=== PATIENT | male | born 1990 | race Caucasian/White ===

== ENCOUNTER 2019-01-05 02:26 | Emergency (ER) | payer OTHER, SELFPAY ==
[2019-01-05 02:27] VITALS: BP 115/67; PULSE 79; RESP 16; TEMP 36.7; O2SAT 99; BMI 25.7
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
--- NOTE | 2019-01-05 02:45 | CT_ITS ---
STUDY: CTA OF THE BRAIN REASON FOR EXAM: Male, 28 years old. Blurred vision, headache RADIATION DOSAGE (If Supplied By Facility): CTDIvol = ( 25.98 ) mGy, DLP = ( 1607.06 ) mGycm TECHNIQUE: CT angiography was performed with a multi-detector CT scanner. Data acquisition was obtained from the skull base through the vertex following intravenous administration of Isovue 370 100ML IV. MIP images were reconstructed from the axial data set. Post-processing of the angiographic images was performed, with multiplanar reformation and 3D reconstruction. Individualized dose optimization techniques were used for this CT. COMPARISON: None. FINDINGS: Normal bilateral pet[place] carotid arteries. Normal right cavernous carotid artery with a normal supraclinoid bifurcation. Normal left cavernous carotid artery with a normal supraclinoid bifurcation. Normal right A1 segments of the anterior cerebral artery. Normal left A1 segments of the anterior cerebral artery. Normal intact anterior communicating artery (ACOM). Normal bilateral A2 segments of the anterior cerebral arteries. Normal right M1 and M2 segments of the middle cerebral arteries, with a normal M1 bifurcation. Normal left M1 and M2 segments of the middle cerebral arteries, with a normal M1 bifurcation. Normal right posterior communicating artery (PCOM). Normal left posterior communicating artery (PCOM). Normal bilateral vertebral arteries. Normal basilar artery with a normal basilar bifurcation. The visualized bilateral superior cerebellar (SCA) arteries are normal. Normal bilateral P1, P2 and visualized P3 segments of the posterior cerebral arteries. There is no demonstrated aneurysm of the [place]. There is no demonstrated abnormality of the visualized brain. Paranasal sinus disease. Multiple periapical lucencies are seen may represent dental abscess. There is no evidence for soft tissue extension. Recommend follow-up with patient's dentist. Evaluation is limited of the mouth due to streak artifact from patient's dental hardware. CT/CTA Head W/WO Contrast IMPRESSION: Normal [place] without a demonstrated aneurysm or hemodynamically significant stenosis. Other findings as discussed above. Electronically Signed: Dominic Cleaning, at 4:33 EST Tel , Service support ,
--- NOTE | 2019-01-05 02:52 | ED.VIS.GEN ---
History of Present Illness Chief Complaint: Eye Problem Detail of Chief Complaint: headache Informant: Patient Onset: Weeks - 1 Context: Sudden Onset - felt a pop behind left eye in head when bent over forwards Timing: Waxes and wanes Quality: like needles Location: behind left eye Current Severity: Moderate Maximum Severity: Moderate Worsened by: bending over forwards Relieved by: nothing in particular Associated Symptoms: blurry vision in left eye off and on. upper neck pain. no trauma. Narrative: Patient states symptoms were worse tonight at work so he came in for evaluation. It is almost 3 AM. Symptoms have been ongoing for about a week. This is the first time he has been seen for this. History of seizures in the past, does not have them very often and his last one was about 6 months ago. He takes no medications. He uses marijuana but no other drugs. He states he has been having some tingling in his left arm off and on in the past week as well but no weakness. No problems walking. Also some dizziness/vertigo off and on, no changes in hearing, tinnitus, or earache. No recent illnesses. He has had no episodes of loss of consciousness. - Past Medical History (1) Seizures Status: Chronic Past Medical History - Allergies and Home Meds Allergies/Adverse Reactions: Allergies No Known Allergies Allergy (Verified 01/05/19 02:27) Primary Care Physician: Care Physician,No Primary [Primary Care Provider] - Smoking Status: Current every day smoker Drugs: Marijuana - no other illicit drugs Review of Systems General: Denies: Chills, Fever, Sweats Eyes: Reports: Blurred vision - left, - - no eye pain. Denies: Diplopia ENT: Reports: Rhinorrhea - clear, when he becomes upright often after bending over forwards. Denies: Bilateral ear pain, Sore throat Cardiovascular: Denies: Chest pain, Palpitations Respiratory: Denies: Dyspnea, Cough, Dyspnea on exertion Gastrointestinal: Denies: Abdominal pain, Nausea, Vomiting, Diarrhea, Melena, Hematochezia Genitourinary: Denies: Dysuria, Hematuria, Frequency Musculoskeletal: Reports: Neck pain. Denies: Back pain, Extremity Pain Skin: Denies: Rash, Wounds Neurological: Reports: Headache, Parasthesia. Denies: Weakness Physical Exam Vital Signs/Narrative: Vital Signs Temp Pulse Resp BP Pulse Ox 01/05/19 02:27 98.1 F 79 16 115/67 99 Inital Vital Signs reviewed: Yes General: Well nourished, Well developed, No Acute Distress - well-appearing Head: Normocephalic, Atraumatic Eyes: Perrl, EOMI - w/o pain ENT: Moist mucous membranes, No rhinorrhea, TM's clear. Negative for: Nasal congestion, Sinus tenderness Neck: Supple, Nontender, No lymphadenopathy, No JVD, - - no carotid bruits bilaterally Cardiovascular: Regular rate, Regular rhythm, No murmurs, Normal S1, Normal S2 Respiratory: No distress, CTA bilaterally, Chest nontender Back: Nontender, Normal Inspection Extremities: Nontender, No edema Skin: Normal color, No rash, No Trauma Neurological: Alert, Oriented x3, Cranial nerves II-XII grossly intact, Normal Strength, Normal Sensation, Normal DTR, Normal Gait Psychological: Normal affect, Normal Mood Diagnostic/Tx/Re-eval Impressions Head CTA 01/05/19 02:45 IMPRESSION: Normal [place] without a demonstrated aneurysm or hemodynamically significant stenosis. Other findings as discussed above. Electronically Signed: Dominic Cleaning, at 4:33 EST Tel , Service support , Neck CTA 01/05/19 02:45 IMPRESSION: Normal bilateral cervical carotid and vertebral arteries. Other findings as above. Electronically Signed: Dominic Cleaning, at 4:30 EST Tel , Service support , 01/05/19 02:45 CTA Head W/WO Contrast [CT] Stat CTA Neck W/WO Contrast [CT] Stat Laboratory Results 01/05/19 03:05 Sodium 144 Potassium 3.8 Chloride 106 Carbon Dioxide 31.0 Anion Gap 7 BUN 11 Creatinine 0.99 Estim Creat Clear Calc 118.32 Est GFR (MDRD) Af Amer 116 Est GFR (MDRD) Non-Af 96 BUN/Creatinine Ratio 11.2 Glucose 90 Calcium 8.5 - Medical Decision Making Normal chemistries were returned prior to obtaining CT with contrast. CT of the head plane is unremarkable, we followed this with CT angiography of the head and neck, which showed no evidence of a cervical artery dissection or other arterial abnormality. After Toradol, he does feel little better. He denies having any nausea or vomiting or photophobia with these headaches, but does note the vertiginous symptoms. Will prescribe him meclizine, advised that he take ibuprofen as needed, and will give him a doctor to follow-up with, since he does not have a PCP. He is comfortable with this plan. Of note, the CT showed incidentally that he has multiple periapical lucencies, that may represent dental abscesses according to the radiologist. When evaluating the patient, he states he is having no dental pain, and the majority of his teeth are implants, which may explain the lucencies. I advised him to follow-up with the dentist if he has any issues. ED Disposition - Plan for ED Patient: Disposition: Home or Assisted Living Diagnosis: Cephalgia, Vertigo Instructions: ED Cephalgia Unspecified, ED Vertigo Unspecified Prescriptions: Meclizine HCl 25 mg PO Q8H PRN #16 tab PRN Reason: Vertigo Referrals: Nilsa Daniel MD [STAFF PHYSICIAN] - 1 Week if not improving
--- NOTE | 2019-01-05 02:56 | ED.DCSUM_ITS ---
History of Present Illness Chief Complaint: Eye Problem Detail of Chief Complaint: headache Informant: Patient Onset: Weeks - 1 Context: Sudden Onset - felt a pop behind left eye in head when bent over forwards Timing: Waxes and wanes Quality: like needles Location: behind left eye Current Severity: Moderate Maximum Severity: Moderate Worsened by: bending over forwards Relieved by: nothing in particular Associated Symptoms: blurry vision in left eye off and on. upper neck pain. no trauma. Narrative: Patient states symptoms were worse tonight at work so he came in for evaluation. It is almost 3 AM. Symptoms have been ongoing for about a week. This is the first time he has been seen for this. History of seizures in the past, does not have them very often and his last one was about 6 months ago. He takes no medications. He uses marijuana but no other drugs. He states he has been having some tingling in his left arm off and on in the past week as well but no weakness. No problems walking. Also some dizziness/vertigo off and on, no changes in hearing, tinnitus, or earache. No recent illnesses. He has had no episodes of loss of consciousness. - Past Medical History (1) Seizures Status: Chronic Past Medical History - Allergies and Home Meds Allergies/Adverse Reactions: Allergies No Known Allergies Allergy (Verified 01/05/19 02:27) Primary Care Physician: Care Physician,No Primary [Primary Care Provider] - Smoking Status: Current every day smoker Drugs: Marijuana - no other illicit drugs Review of Systems General: Denies: Chills, Fever, Sweats Eyes: Reports: Blurred vision - left, - - no eye pain. Denies: Diplopia ENT: Reports: Rhinorrhea - clear, when he becomes upright often after bending over forwards. Denies: Bilateral ear pain, Sore throat Cardiovascular: Denies: Chest pain, Palpitations Respiratory: Denies: Dyspnea, Cough, Dyspnea on exertion Gastrointestinal: Denies: Abdominal pain, Nausea, Vomiting, Diarrhea, Melena, Hematochezia Genitourinary: Denies: Dysuria, Hematuria, Frequency Musculoskeletal: Reports: Neck pain. Denies: Back pain, Extremity Pain Skin: Denies: Rash, Wounds Neurological: Reports: Headache, Parasthesia. Denies: Weakness Physical Exam Vital Signs/Narrative: Vital Signs Temp Pulse Resp BP Pulse Ox 01/05/19 02:27 98.1 F 79 16 115/67 99 Inital Vital Signs reviewed: Yes General: Well nourished, Well developed, No Acute Distress - well-appearing Head: Normocephalic, Atraumatic Eyes: Perrl, EOMI - w/o pain ENT: Moist mucous membranes, No rhinorrhea, TM's clear. Negative for: Nasal congestion, Sinus tenderness Neck: Supple, Nontender, No lymphadenopathy, No JVD, - - no carotid bruits bilaterally Cardiovascular: Regular rate, Regular rhythm, No murmurs, Normal S1, Normal S2 Respiratory: No distress, CTA bilaterally, Chest nontender Back: Nontender, Normal Inspection Extremities: Nontender, No edema Skin: Normal color, No rash, No Trauma Neurological: Alert, Oriented x3, Cranial nerves II-XII grossly intact, Normal Strength, Normal Sensation, Normal DTR, Normal Gait Psychological: Normal affect, Normal Mood Diagnostic/Tx/Re-eval Impressions Head CTA 01/05/19 02:45 IMPRESSION: Normal [place] without a demonstrated aneurysm or hemodynamically significant stenosis. Other findings as discussed above. Electronically Signed: Dominic Cleaning, at 4:33 EST Tel , Service support , Neck CTA 01/05/19 02:45 IMPRESSION: Normal bilateral cervical carotid and vertebral arteries. Other findings as above. Electronically Signed: Dominic Cleaning, at 4:30 EST Tel , Service support , 01/05/19 02:45 CTA Head W/WO Contrast [CT] Stat CTA Neck W/WO Contrast [CT] Stat Laboratory Results 01/05/19 03:05 Sodium 144 Potassium 3.8 Chloride 106 Carbon Dioxide 31.0 Anion Gap 7 BUN 11 Creatinine 0.99 Estim Creat Clear Calc 118.32 Est GFR (MDRD) Af Amer 116 Est GFR (MDRD) Non-Af 96 BUN/Creatinine Ratio 11.2 Glucose 90 Calcium 8.5 - Medical Decision Making Normal chemistries were returned prior to obtaining CT with contrast. CT of the head plane is unremarkable, we followed this with CT angiography of the head and neck, which showed no evidence of a cervical artery dissection or other arterial abnormality. After Toradol, he does feel little better. He denies having any nausea or vomiting or photophobia with these headaches, but does note the vertiginous symptoms. Will prescribe him meclizine, advised that he take ibuprofen as needed, and will give him a doctor to follow-up with, since he does not have a PCP. He is comfortable with this plan. Of note, the CT showed incidentally that he has multiple periapical lucencies, that may represent dental abscesses according to the radiologist. When evaluating the patient, he states he is having no dental pain, and the majority of his teeth are implants, which may explain the lucencies. I advised him to follow-up with the dentist if he has any issues. ED Disposition - Plan for ED Patient: Disposition: Home or Assisted Living Diagnosis: Cephalgia, Vertigo Instructions: ED Cephalgia Unspecified, ED Vertigo Unspecified Prescriptions: Meclizine HCl 25 mg PO Q8H PRN #16 tab PRN Reason: Vertigo Referrals: Nilsa Daniel MD [STAFF PHYSICIAN] - 1 Week if not improving
[2019-01-05] MEDS: Ketorolac 30 MG/ML Syringe IV (02:59)
[2019-01-05 03:23] LABS: Anion Gap 7 (5-15); BUN 11 mg/dL (7-18); BUN/Creat Ratio 11.2 RATIO (10-20); Calcium,Total 8.5 mg/dL (8.5-10.1); Chloride 106 mmol/L (98-107); Creatinine, Serum 0.99 mg/dL (0.70-1.30); EST Glomerular Filtration Rate 96 mL/min (>60); Est Glom Filt Rate - Afr Amer 116 mL/min (>60); Estimated Creatinine Clearance 118.32 ml/min; Glucose 90 mg/dL (74-106); Potassium 3.8 mmol/L (3.5-5.1); Sodium Level 144 mmol/L (136-145)
[2019-01-05] MEDS: Meclizine HCl 25 MG Tablet PO (04:54)
[2019-01-05 04:57] VITALS: BP 120/69; PULSE 66; RESP 16; O2SAT 100
== END 2019-01-05 04:58 | disposition home or self-care (01) ==
PROVIDERS: Emergency Provider Emergency Medicine
DX: R51 Headache (principal); R42 Dizziness and giddiness; H53.8 Other visual disturbances; M54.2 Cervicalgia; R20.2 Paresthesia of skin; R56.9 Unspecified convulsions; F17.200 Nicotine dependence, unspecified, uncomplicated; Z79.899 Other long term (current) drug therapy
CPT/HCPCS: 70496; 70498; 80048; 96361; 96374; 99284; J7030; Q9967; A4216

== ENCOUNTER 2020-04-20 14:11 | Emergency (ER) | payer OTHER, MEDICAID, SELFPAY ==
[2020-04-20 14:13] VITALS: BP 127/80; PULSE 77; RESP 17; TEMP 36.3; O2SAT 97; BMI 27.3
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
[2020-04-20 15:45] VITALS: BP 112/72; PULSE 59; RESP 18; O2SAT 100
== END 2020-04-20 15:46 | disposition home or self-care (01) ==
PROVIDERS: Emergency Provider Emergency Medicine
DX: S06.0X0A Concussion without loss of consciousness, initial encounter (principal); Y04.2XXA Assault by strike against or bumped into by another person, initial encounter; Y93.01 Activity, walking, marching and hiking; Y92.89 Other specified places as the place of occurrence of the external cause; Y99.9 Unspecified external cause status; F17.200 Nicotine dependence, unspecified, uncomplicated; R06.00 Dyspnea, unspecified; Z86.69 Personal history of other diseases of the nervous system and sense organs
CPT/HCPCS: 70450; 71046; 99282

== ENCOUNTER 2022-05-09 13:15 | Emergency (ER) | payer OTHER, MEDICAID, SELFPAY ==
[2022-05-09 13:16] VITALS: BP 138/79; PULSE 85; RESP 16; TEMP 36.2; O2SAT 98; BMI 27.8
== END 2022-05-09 14:34 | disposition left against medical advice (07) ==
LOC: ED 14:36
DX: R10.9 Unspecified abdominal pain (principal); Z53.21 Procedure and treatment not carried out due to patient leaving prior to being seen by health care provider